=== PATIENT | female | born 1940 | race Caucasian/White ===

== ENCOUNTER 2018-12-24 19:24 | Inpatient (IN) | payer OTHER ==
[~2018-12-24] VITALS: Ht 162.6 cm; Wt 56.7 kg
[2018-12-24 19:37] VITALS: BP_SYST 144
[2018-12-24] MEDS ORDERED: NS 500 ML IV ONE (20:15)
[2018-12-24 20:22] LABS: BASOPHILS # (AUTO) 0.1 K/uL (0.0-0.2); BASOPHILS % (AUTO) 1.6 % (0.0-2.0); EOSINOPHILS # (AUTO) 0.1 K/uL (0.0-0.4); EOSINOPHILS % (AUTO) 1.8 % (0.0-4.0); LYMPHOCYTES # (AUTO) 0.9 K/uL (1.0-5.5); LYMPHOCYTES % (AUTO) 12.6 % (20.5-51.5); MEAN CORPUSCULAR HEMOGLOBIN 35 pg (27-31); MEAN CORPUSCULAR HGB CONC 34 % (32-36); MEAN CORPUSCULAR VOLUME 104 fL (79.0-98.0); MONOCYTES # (AUTO) 0.6 K/uL (0.0-1.0); MONOCYTES % (AUTO) 7.7 % (1.7-9.3); NEUTROPHILS # (AUTO) 5.5 K/uL (1.8-7.7); NEUTROPHILS % (AUTO) 76.3 % (40.0-70.0); PLATELET COUNT (AUTO) 233 K/uL (130-430); RED BLOOD CELL COUNT(AUTO) 3.94 MIL/uL (4.2-6.2); RED CELL DISTRIBUTION WIDTH 13.3 % (9.0-15.0); WHITE BLOOD COUNT (AUTO) 7.2 K/uL (4.8-10.8)
[2018-12-24 20:38] LABS: ANION GAP 14 (5-15); CALCIUM 9.3 mg/dL (8.4-11.0); CHLORIDE 102 mmol/L (98-107); CREATININE 0.81 mg/dL (0.55-1.30); GLUCOSE 88 mg/dL (70-99); POTASSIUM 4.2 mmol/L (3.5-5.1); SODIUM SERUM 138 mmol/L (136-145); UREA NITROGEN, BLOOD 17 mg/dL (8-21)
[2018-12-24 20:39] LABS: PROTHROMBIN TIME 9.8 SECS (9.5-12.5)
[2018-12-24 20:44] LABS: ALANINE AMINOTRANSFERASE 26 U/L (12-78); ALBUMIN 3.3 g/dL (3.4-4.8); ASPARTATE AMINOTRANSFERASE 28 U/L (10-37); TOTAL BILIRUBIN 0.3 mg/dL (0.0-1.0)
[2018-12-24] MEDS ORDERED: ASPIRIN 81 MG TAB.CHEW PO ONE (21:00)
[2018-12-24] MEDS ORDERED: OMEG-155 PO (21:13)
[2018-12-24] MEDS ORDERED: ALBU8.5H8 INH (21:13)
[2018-12-24] MEDS ORDERED: BECL10.62 IH (21:13)
[2018-12-24] MEDS ORDERED: PSYL660P17 PO (21:13)
[2018-12-24] MEDS ORDERED: ALEN10TA6 PO (21:13)
[2018-12-24] MEDS ORDERED: CALC-1050 PO (21:13)
[2018-12-24] MEDS ORDERED: UMEC1BLS IH (21:15)
[2018-12-24] MEDS ORDERED: MULT-300 PO (21:23)
[2018-12-24 21:27] LABS: BILIRUBIN,URINE 1+ (NEGATIVE); BLOOD, URINE NEGATIVE (NEGATIVE); CLARITY/URINE CLEAR (CLEAR); COLOR,URINE YELLOW (YELLOW); GLUCOSE,URINE NEGATIVE (NEGATIVE); KETONES,URINE 2+ (NEGATIVE); LEUKOCYTE ESTERASE ,URINE 2+ (NEGATIVE); NITRITE, URINE NEGATIVE (NEGATIVE); PH,URINE 5.5 (5.0-8.0); PROTEIN URINE TRACE (NEGATIVE); UROBILINOGEN,URINE 0.2 (0.2-1.0)
[2018-12-24] MEDS ORDERED: APIX5TAB4 PO (21:30)
[2018-12-24 21:32] LABS: RBC,URINE 0-3 /HPF (0-3)
[2018-12-24 21:33] LABS: BACTERIA,URINE FEW /HPF (None Seen); MUCUS,URINE 2+ /LPF (None Seen); WBC,URINE >100 /HPF (0-3)
[2018-12-24] MEDS ORDERED: LEVOFLOXACIN 500 MG/D5W 100 ML IV ONE (21:45)
[2018-12-24] MEDS ORDERED: APIXABAN 2.5 MG TABLET PO ONE (23:30)
[2018-12-24 23:35] VITALS: BP_SYST 112
[2018-12-25] MEDS ORDERED: DIPHENHYDRAMINE HCL 25 MG CAPSULE PO ONE
[2018-12-25] MEDS ORDERED: GENTAMICIN 80 mg/100 mL NS 100 ML IV ONE ×2 (00:04)
[2018-12-25] MEDS ORDERED: cefTRIAXone 1 GM IVPB PREMIX 50 ML IV ONE (00:04)
[2018-12-25] MEDS: cefTRIAXone 1 GM IVPB PREMIX 50 ML IV SCH ×2 (00:06→23:16)
[2018-12-25] MEDS: IPRATROPIUM/ALBUTEROL SULFATE 3 ML AMPUL.NEB (DUONEB) INH PRN ×3 (00:15→11:06)
[2018-12-25 00:57] VITALS: BP_SYST 138
[2018-12-25 08:00] VITALS: BP_SYST 104
[2018-12-25] MEDS ORDERED: MULTIVITAMINS W MINERALS PO SCH (09:00)
[2018-12-25] MEDS ORDERED: PSYLLIUM HUSK PO SCH (09:00)
[2018-12-25] MEDS: CALCIUM CARBONATE/VITAMIN D3 1 TAB TABLET PO SCH (09:39)
[2018-12-25] MEDS: MULTIVITS,CA,MINERALS/IRON/FA 1 TABLET PO SCH (09:39)
[2018-12-25] MEDS: guaiFENesin ER 600 MG TAB PO SCH ×2 (09:40→20:44)
[2018-12-25] MEDS: PSYLLIUM HUSK 1 PKT PACKET PO SCH (09:40)
[2018-12-25] MEDS: APIXABAN 2.5 MG TABLET PO SCH ×2 (09:41→20:45)
[2018-12-25 12:00] VITALS: BP_SYST 126
[2018-12-25] MEDS ORDERED: AZITHROMYCIN 250 MG TABLET PO ONE (15:00)
[2018-12-25] MEDS: methylPREDNISolone SOD SUCC/PF 62.5 MG/ML VIAL IVP SCH ×2 (16:49→22:26)
[2018-12-25 18:09] VITALS: BP_SYST 156
[2018-12-25 20:05] VITALS: BP_SYST 137
[2018-12-25] MEDS: ZOLPIDEM TARTRATE 5 MG TABLET PO PRN (20:44)
[2018-12-25] MEDS ORDERED: LEVOFLOXACIN 500 MG/D5W 100 ML IV ONE (21:00)
[2018-12-25] MEDS ORDERED: LEVOFLOXACIN 250 MG/D5W 50 ML IV ONE (21:56)
[2018-12-26 00:40] VITALS: BP_SYST 135
[2018-12-26] MEDS: BUDESONIDE 0.5 MG/2 ML AMPUL.NEB INH SCH ×3 (01:57→19:44)
[2018-12-26] MEDS: IPRATROPIUM BROM 0.5 MG/2.5 ML VIAL.NEB (ATROVENT) INH SCH ×5 (01:57→19:45)
[2018-12-26] MEDS: ALBUTEROL SULFATE 0.083% 2.5 MG/3 ML VIAL.NEB INH SCH ×5 (01:57→19:45)
[2018-12-26] MEDS: methylPREDNISolone SOD SUCC/PF 62.5 MG/ML VIAL IVP SCH (06:07)
[2018-12-26 06:29] LABS: BASOPHILS % (AUTO) 0.3 % (0.0-2.0); HEMOGLOBIN 13.8 g/dL (12.0-16.0); LYMPHOCYTES # (AUTO) 0.3 K/uL (1.0-5.5); LYMPHOCYTES % (AUTO) 7.2 % (20.5-51.5); MEAN CORPUSCULAR HEMOGLOBIN 35 pg (27-31); MEAN CORPUSCULAR HGB CONC 34 % (32-36); MEAN CORPUSCULAR VOLUME 104 fL (79.0-98.0); MONOCYTES % (AUTO) 0.9 % (1.7-9.3); NEUTROPHILS % (AUTO) 91.6 % (40.0-70.0); PLATELET COUNT (AUTO) 241 K/uL (130-430); RED BLOOD CELL COUNT(AUTO) 3.92 MIL/uL (4.2-6.2); WHITE BLOOD COUNT (AUTO) 4.4 K/uL (4.8-10.8)
[2018-12-26 06:45] LABS: ANION GAP 11 (5-15); CALCIUM 9.3 mg/dL (8.4-11.0); CHLORIDE 101 mmol/L (98-107); CREATININE 0.64 mg/dL (0.55-1.30); GLUCOSE 155 mg/dL (70-99); POTASSIUM 4.5 mmol/L (3.5-5.1); SODIUM SERUM 136 mmol/L (136-145); UREA NITROGEN, BLOOD 11 mg/dL (8-21)
[2018-12-26] MEDS: CALCIUM CARBONATE/VITAMIN D3 1 TAB TABLET PO SCH (08:54)
[2018-12-26] MEDS: APIXABAN 2.5 MG TABLET PO SCH ×2 (08:54→21:04)
[2018-12-26] MEDS: PSYLLIUM HUSK 1 PKT PACKET PO SCH (08:54)
[2018-12-26] MEDS: AZITHROMYCIN 250 MG TABLET PO SCH (08:56)
[2018-12-26] MEDS: guaiFENesin ER 600 MG TAB PO SCH ×2 (08:56→21:11)
[2018-12-26] MEDS: MULTIVITS,CA,MINERALS/IRON/FA 1 TABLET PO SCH (08:56)
[2018-12-26 09:00] VITALS: BP_SYST 121
[2018-12-26 11:15] VITALS: BP_SYST 130
[2018-12-26 15:30] VITALS: BP_SYST 110
[2018-12-26] MEDS: methylPREDNISolone SOD SUCC 40 MG/ML VIAL IVP SCH (18:09)
[2018-12-26] MEDS: IPRATROPIUM/ALBUTEROL SULFATE 3 ML AMPUL.NEB (DUONEB) INH PRN (18:11)
[2018-12-26 20:15] VITALS: BP_SYST 125
[2018-12-26] MEDS ORDERED: LEVOFLOXACIN 250 MG/D5W 50 ML IV SCH (21:00)
[2018-12-26] MEDS: ZOLPIDEM TARTRATE 5 MG TABLET PO PRN (21:10)
[2018-12-26] MEDS: cefTRIAXone 1 GM IVPB PREMIX 50 ML IV SCH (23:47)
[2018-12-27] MEDS: ALBUTEROL SULFATE 0.083% 2.5 MG/3 ML VIAL.NEB INH SCH ×4 (01:06→19:15)
[2018-12-27] MEDS: IPRATROPIUM BROM 0.5 MG/2.5 ML VIAL.NEB (ATROVENT) INH SCH ×4 (01:06→19:15)
[2018-12-27 01:15] VITALS: BP_SYST 125
[2018-12-27] MEDS: methylPREDNISolone SOD SUCC 40 MG/ML VIAL IVP SCH ×2 (06:31→21:15)
[2018-12-27] MEDS: BUDESONIDE 0.5 MG/2 ML AMPUL.NEB INH SCH ×2 (07:16→19:32)
[2018-12-27 08:00] VITALS: BP_SYST 136
[2018-12-27] MEDS: PSYLLIUM HUSK 1 PKT PACKET PO SCH (09:09)
[2018-12-27] MEDS: MULTIVITS,CA,MINERALS/IRON/FA 1 TABLET PO SCH (09:10)
[2018-12-27] MEDS: CALCIUM CARBONATE/VITAMIN D3 1 TAB TABLET PO SCH (09:10)
[2018-12-27] MEDS: AZITHROMYCIN 250 MG TABLET PO SCH (09:10)
[2018-12-27] MEDS: guaiFENesin ER 600 MG TAB PO SCH ×2 (09:10→21:15)
[2018-12-27] MEDS: APIXABAN 2.5 MG TABLET PO SCH ×2 (09:13→21:18)
[2018-12-27] MEDS ORDERED: CHOLECALCIFEROL (VITAMIN D3) 2,000 UNIT TABLET PO ONE (11:45)
[2018-12-27 12:10] VITALS: BP_SYST 145
[2018-12-27 16:15] VITALS: BP_SYST 145
[2018-12-27] MEDS: IPRATROPIUM/ALBUTEROL SULFATE 3 ML AMPUL.NEB (DUONEB) INH PRN (18:02)
[2018-12-27 19:00] VITALS: BP_SYST 128
[2018-12-27 20:00] VITALS: BP_SYST 128
[2018-12-27] MEDS: ZOLPIDEM TARTRATE 5 MG TABLET PO PRN (21:17)
[2018-12-28] MEDS: cefTRIAXone 1 GM IVPB PREMIX 50 ML IV SCH (00:17)
[2018-12-28 00:21] VITALS: BP_SYST 124
[2018-12-28] MEDS: ALBUTEROL SULFATE 0.083% 2.5 MG/3 ML VIAL.NEB INH SCH ×4 (00:25→19:25)
[2018-12-28] MEDS: IPRATROPIUM BROM 0.5 MG/2.5 ML VIAL.NEB (ATROVENT) INH SCH ×4 (00:25→19:25)
[2018-12-28] MEDS: BUDESONIDE 0.5 MG/2 ML AMPUL.NEB INH SCH ×2 (07:13→19:26)
[2018-12-28 07:59] VITALS: BP_SYST 143
[2018-12-28] MEDS: PSYLLIUM HUSK 1 PKT PACKET PO SCH (09:00)
[2018-12-28] MEDS: CHOLECALCIFEROL (VITAMIN D3) 2,000 UNIT TABLET PO SCH (09:46)
[2018-12-28] MEDS: MULTIVITS,CA,MINERALS/IRON/FA 1 TABLET PO SCH (09:46)
[2018-12-28] MEDS: AZITHROMYCIN 250 MG TABLET PO SCH (09:46)
[2018-12-28] MEDS: guaiFENesin ER 600 MG TAB PO SCH ×2 (09:47→20:41)
[2018-12-28] MEDS: CALCIUM CARBONATE/VITAMIN D3 1 TAB TABLET PO SCH (09:47)
[2018-12-28] MEDS: APIXABAN 2.5 MG TABLET PO SCH ×2 (09:48→20:43)
[2018-12-28 11:38] VITALS: BP_SYST 128
[2018-12-28 15:47] VITALS: BP_SYST 135
[2018-12-28 20:15] VITALS: BP_SYST 127
[2018-12-28] MEDS: methylPREDNISolone SOD SUCC 40 MG/ML VIAL IVP SCH (20:41)
[2018-12-28] MEDS: ZOLPIDEM TARTRATE 5 MG TABLET PO PRN (20:41)
[2018-12-29] MEDS: cefTRIAXone 1 GM IVPB PREMIX 50 ML IV SCH (00:03)
[2018-12-29 00:35] VITALS: BP_SYST 139
[2018-12-29] MEDS: IPRATROPIUM BROM 0.5 MG/2.5 ML VIAL.NEB (ATROVENT) INH SCH ×4 (00:56→19:44)
[2018-12-29] MEDS: ALBUTEROL SULFATE 0.083% 2.5 MG/3 ML VIAL.NEB INH SCH ×4 (00:56→19:44)
[2018-12-29] MEDS: BUDESONIDE 0.5 MG/2 ML AMPUL.NEB INH SCH ×2 (07:12→20:02)
[2018-12-29 07:21] LABS: HEMATOCRIT 40.5 % (36-48); HEMOGLOBIN 13.5 g/dL (12.0-16.0); LYMPHOCYTES # (AUTO) 0.4 K/uL (1.0-5.5); LYMPHOCYTES % (AUTO) 6.5 % (20.5-51.5); MEAN CORPUSCULAR HEMOGLOBIN 35 pg (27-31); MEAN CORPUSCULAR HGB CONC 33 % (32-36); MEAN CORPUSCULAR VOLUME 104 fL (79.0-98.0); MONOCYTES # (AUTO) 0.1 K/uL (0.0-1.0); MONOCYTES % (AUTO) 2.2 % (1.7-9.3); NEUTROPHILS # (AUTO) 5.4 K/uL (1.8-7.7); NEUTROPHILS % (AUTO) 91.3 % (40.0-70.0); PLATELET COUNT (AUTO) 199 K/uL (130-430); RED BLOOD CELL COUNT(AUTO) 3.89 MIL/uL (4.2-6.2); RED CELL DISTRIBUTION WIDTH 13.6 % (9.0-15.0); WHITE BLOOD COUNT (AUTO) 5.9 K/uL (4.8-10.8)
[2018-12-29 07:35] LABS: ALANINE AMINOTRANSFERASE 45 U/L (12-78); ALBUMIN 2.9 g/dL (3.4-4.8); ANION GAP 8 (5-15); ASPARTATE AMINOTRANSFERASE 30 U/L (10-37); CALCIUM 9.5 mg/dL (8.4-11.0); CHLORIDE 99 mmol/L (98-107); CREATININE 0.59 mg/dL (0.55-1.30); GLUCOSE 125 mg/dL (70-99); POTASSIUM 4.6 mmol/L (3.5-5.1); SODIUM SERUM 135 mmol/L (136-145); TOTAL BILIRUBIN 0.3 mg/dL (0.0-1.0); UREA NITROGEN, BLOOD 21 mg/dL (8-21)
[2018-12-29 08:00] VITALS: BP_SYST 134
[2018-12-29] MEDS: PSYLLIUM HUSK 1 PKT PACKET PO SCH (09:00)
[2018-12-29] MEDS: guaiFENesin ER 600 MG TAB PO SCH ×2 (09:38→21:36)
[2018-12-29] MEDS: CALCIUM CARBONATE/VITAMIN D3 1 TAB TABLET PO SCH (09:38)
[2018-12-29] MEDS: MULTIVITS,CA,MINERALS/IRON/FA 1 TABLET PO SCH (09:38)
[2018-12-29] MEDS: AZITHROMYCIN 250 MG TABLET PO SCH (09:38)
[2018-12-29] MEDS: CHOLECALCIFEROL (VITAMIN D3) 2,000 UNIT TABLET PO SCH (09:38)
[2018-12-29] MEDS: APIXABAN 2.5 MG TABLET PO SCH ×2 (09:39→21:40)
[2018-12-29 11:28] VITALS: BP_SYST 135
[2018-12-29 15:51] VITALS: BP_SYST 131
[2018-12-29 20:00] VITALS: BP_SYST 127
[2018-12-29] MEDS: methylPREDNISolone SOD SUCC 40 MG/ML VIAL IVP SCH (21:38)
[2018-12-30] MEDS: cefTRIAXone 1 GM IVPB PREMIX 50 ML IV SCH (00:18)
[2018-12-30] MEDS: IPRATROPIUM BROM 0.5 MG/2.5 ML VIAL.NEB (ATROVENT) INH SCH ×4 (01:09→19:22)
[2018-12-30] MEDS: ALBUTEROL SULFATE 0.083% 2.5 MG/3 ML VIAL.NEB INH SCH ×4 (01:09→19:22)
[2018-12-30 01:19] VITALS: BP_SYST 138
[2018-12-30] MEDS: BUDESONIDE 0.5 MG/2 ML AMPUL.NEB INH SCH ×2 (07:19→19:34)
[2018-12-30 08:10] VITALS: BP_SYST 139
[2018-12-30] MEDS: guaiFENesin ER 600 MG TAB PO SCH ×2 (08:49→21:21)
[2018-12-30] MEDS: CALCIUM CARBONATE/VITAMIN D3 1 TAB TABLET PO SCH (08:49)
[2018-12-30] MEDS: MULTIVITS,CA,MINERALS/IRON/FA 1 TABLET PO SCH (08:49)
[2018-12-30] MEDS: CHOLECALCIFEROL (VITAMIN D3) 2,000 UNIT TABLET PO SCH (08:49)
[2018-12-30] MEDS: APIXABAN 2.5 MG TABLET PO SCH ×2 (08:50→21:20)
[2018-12-30] MEDS: PSYLLIUM HUSK 1 PKT PACKET PO SCH (08:51)
[2018-12-30 08:54] VITALS: BP_SYST 138
[2018-12-30 12:52] VITALS: BP_SYST 112
[2018-12-30 15:37] VITALS: BP_SYST 120
[2018-12-30 22:27] VITALS: BP_SYST 127
== END 2018-12-30 23:30 | DRG 193 ==
LOC: SED 19:24 → SMU 22:15 → STU 22:37 → SMU 12-27 11:28
PROVIDERS: ADMIT Internal Medicine; ATTEND Internal Medicine
DX: J18.9 Pneumonia, unspecified organism (principal); J96.21 Acute and chronic respiratory failure with hypoxia; J44.1 Chronic obstructive pulmonary disease with (acute) exacerbation; N39.0 Urinary tract infection, site not specified; D68.59 Other primary thrombophilia; J44.0 Chronic obstructive pulmonary disease with (acute) lower respiratory infection; J20.9 Acute bronchitis, unspecified; M25.462 Effusion, left knee; Z96.611 Presence of right artificial shoulder joint; G62.9 Polyneuropathy, unspecified; S89.82XA Other specified injuries of left lower leg, initial encounter; M48.061 Spinal stenosis, lumbar region without neurogenic claudication; W01.0XXA Fall on same level from slipping, tripping and stumbling without subsequent striking against object, initial encounter; M47.9 Spondylosis, unspecified; M21.372 Foot drop, left foot; M81.0 Age-related osteoporosis without current pathological fracture; Z87.891 Personal history of nicotine dependence; Z86.718 Personal history of other venous thrombosis and embolism; Y93.89 Activity, other specified; Y99.8 Other external cause status; Y92.009 Unspecified place in unspecified non-institutional (private) residence as the place of occurrence of the external cause; Z90.49 Acquired absence of other specified parts of digestive tract; Z79.01 Long term (current) use of anticoagulants; Z99.81 Dependence on supplemental oxygen
CPT/HCPCS: 36415; 71045; 71250-TC; 72148; 73564; 80048; 80053; 81000-TC; 82378; 83605; 83880; 84484; 85025; 85610-TC; 85730-TC; 87040-TC; 87070-TC; 87086; 87205-TC; 93005; 93306; 94010; 94640; 94760; 96365; 97110-GP; 97116-GP; 97530-GP; 99285; G0378; J0696; J1030; J1580; J1956; J2930; J7050; J7613; J7620; J7626; Q0144; Q0163